=== PATIENT | female | born 1950 | race African-American/Black ===

== ENCOUNTER 2021-06-21 06:58 | Outpatient (CLI) | payer OTHER, SELFPAY ==
[2021-06-21 07:52] LABS: Anion Gap 13 mmol/L (10-20); BUN (Urea Nitrogen) 20 mg/dL (9.8-20.1); Calc. Creatinine Clearance 0 mL/min (70-130); Calcium 10.1 mg/dL (7.8-10.44); Carbon Dioxide 26 mmol/L (23-31); Chloride 106 mmol/L (98-107); Glucose 104 mg/dL (80-115); Sodium 141 mmol/L (136-145)
== END 2021-06-21 06:59 | disposition home or self-care (01) ==
LOC: MADLAB 06:58
PROVIDERS: ATTEND Internal Medicine Nephrology
DX: N18.30 Chronic kidney disease, stage 3 unspecified (principal)
CPT/HCPCS: 36415; 80048

== ENCOUNTER 2021-08-30 06:48 | Outpatient (CLI) | payer BC ==
[2021-08-30 07:57] LABS: Cardiac Risk 2.6 (Less than 4.5)
== END 2021-08-30 06:49 | disposition home or self-care (01) ==
LOC: MADLAB 06:48
PROVIDERS: ATTEND Internal Medicine Cardiovascular Disease
DX: I73.9 Peripheral vascular disease, unspecified (principal)
CPT/HCPCS: 36415; 80061

== ENCOUNTER 2024-11-19 06:53 | Outpatient (CLI) | payer BC ==
[2024-11-19 09:10] LABS: Hematocrit 35.5 % (36.0-47.0); Hemoglobin 10.7 g/dL (12.0-16.0); Mean Corpuscular Hemoglobin 29.0 pg (27.0-31.0); Mean Corpuscular Volume 96.0 fl (78.0-98.0); Platelet Count 228 10x3/uL (130-400); Red Blood Cell (RBC) Count 3.70 mill/uL (4.20-5.40); White Blood Cell (WBC) Count 8.6 10x3/uL (4.8-10.8)
[2024-11-19 09:11] LABS: MDiff Complete? YES; Manual Diff?? YES
[2024-11-19 09:12] LABS: Platelet Adequacy Comment Appears Adequate
== END 2024-11-19 06:54 | disposition home or self-care (01) ==
LOC: MADLAB 06:53
PROVIDERS: ATTEND Family Medicine
DX: D64.9 Anemia, unspecified (principal)
CPT/HCPCS: 36415; 85025